=== PATIENT | male | born 1980 | race Caucasian/White ===

== ENCOUNTER 2018-09-20 21:21 | Observation (INO) ==
--- NOTE | 2018-09-20 21:40 | Emergency Department Note ---
Disposition Forms: ED Satisfaction Letter General Adult HPI - General Chief complaint: ED Psychiatric Symptoms Stated complaint: psych/SI/crying/hypoglycemia Time Seen by Provider: 09/20/18 21:24 - Related Data Allergies Allergy/AdvReac Type Severity Reaction Status Date / Time hydromorphone [From Dilaudid] Allergy Rash Verified 09/20/18 21:39 tramadol Allergy Rash Verified 09/20/18 21:39 Course Vital Signs Temperature 98.2 F 09/20/18 21:43 Pulse Rate 98 09/20/18 21:43 Respiratory Rate 20 09/20/18 21:43 Blood Pressure 166/103 09/20/18 21:43 O2 Sat by Pulse Oximetry 99 09/20/18 21:43 Temperature 98.2 F 09/20/18 21:43 Pulse Rate 98 09/20/18 21:43 Respiratory Rate 20 09/20/18 21:43 Blood Pressure 166/103 09/20/18 21:43 O2 Sat by Pulse Oximetry 99 09/20/18 21:43 Oxygen Delivery Oxygen Delivery Room Air Medical Decision Making - Lab Data Result diagrams: 09/20/18 22:12 Lab Results 09/20/18 09/20/18 09/20/18 Range/Units 21:29 21:30 22:12 WBC 6.6 (4.3-11.1) K/mcL RBC 5.17 (4.19-5.50) M/mcL Hgb 14.9 (12.9-16.9) g/dL Hct 46.5 (37.5-50.1) % MCV 89.9 (83.0-100.0) fL MCH 28.8 (28.0-33.3) pg MCHC 32.0 (31.6-35.5) g/dL RDW 12.9 (11.5-14.5) % Plt Count 319 (140-400) K/mcL MPV 10.5 (9.4-12.4) fL Immature Gran % 0.3 (0-4) % Seg Neutrophils % 45.9 % Lymphocytes % 32.9 % Monocytes % 17.2 % Eosinophils % 2.6 % Basophils % 1.1 % Neutrophils # 3.0 (1.6-8.9) K/mcL Lymphocytes # 2.2 (0.6-4.6) K/mcL Monocytes # 1.1 (0.0-1.3) K/mcL Eosinophils # 0.2 (0.0-0.6) K/mcL Basophils # 0.1 (0.0-0.2) K/mcL POC Glucose 32 L* 33 L* (70-99) mg/dL Critical Care Time Critical Care Time: Yes Total Critical Care Time: 30 Attestation: The high probability of a clinically significant, sudden or life threatening deterioration of the [] system(s) required my full and direct attention, intervention and personal management. The aggregate critical care time was [] minutes. This time is in addition to time spent performing reported procedures but includes the following: [] Data Review and interpretation [] Patient assessment and monitoring of vital signs [] Documentation [] Medication orders and management Attestation Statement - Attestation Attestation: I examined this patient and my medical decision-making was reviewed with the Resident Physician. I agree with the documented findings, disposition and treatment plan as described except to the extent set forth below. [id number] time provided Patient presents tearful accompanied by law enforcement. He complains of left humerus and shoulder pain after an altercation with law enforcement. It is alleged that he made homicidal threats. The patient was evaluated in conjunction with the resident physician Dr. Husain 22:36: The patient was acutely hypoglycemic. I had a lengthy conversation with the patient's who states that she feels the symptoms were secondary to bot h mental health issues and hypoglycemia. I turned off his insulin pump. He was given orange juice. His symptoms improved. He has a humerus fracture. We are going to attempt to contact the patient's primary orthopedic surgeon's partner since is out of town. We will be unable to clear the patient medically and he will likely require admission to the medicine service for monitoring of glucose, possible orthopedic consultation, and mental health evaluation.
--- NOTE | 2018-09-20 21:47 | Emergency Department Note ---
Disposition Clinical Impression: Suicidal ideation, Hypoglycemia Disposition: Admitted As Inpatient Condition: Good Forms: ED Satisfaction Letter General Adult HPI - General Chief complaint: ED Psychiatric Symptoms Stated complaint: psych/SI/crying/hypoglycemia Time Seen by Provider: 09/20/18 21:24 Source: patient, police Nursing Notes Reviewed: Yes Vital Signs Reviewed: Yes - History of Present Illness HPI Narrative: Patient is a 37 year old male with a history of bipolar disorder and insulin dependent diabetes. Presented to ED by police after responding to call from patient's sister and who report that patient was expressing suicidal and homicidal ideations. Police report that states he threatened "to shoot her". patient did have a concealed carry firearm on his person that was removed by police. Patient was seen and evaluated at the bedside. He denies and current or previous suicidal/homicidal ideations. Denies any recent drug use. Denies ingestion of any substances. Admits to left arm pain, reports previous left total shoulder arthroplasty. 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 - Related Data Allergies Allergy/AdvReac Type Severity Reaction Status Date / Time hydromorphone [From Dilaudid] Allergy Rash Verified 09/20/18 21:39 tramadol Allergy Rash Verified 09/20/18 21:39 Constitutional: Denies: fever, chills Eyes: Denies: vision change ENT ED: Denies: throat pain, dysphagia Cardiovascular: Denies: chest pain, palpitations, syncope Respiratory: Denies: cough, dyspnea, wheezes Gastrointestinal: Denies: abdominal pain, nausea, vomiting Genitourinary: Denies: urgency, dysuria Musculoskeletal: Reports: other (left humerus pain) Neurological: Denies: headache Psychiatric: Reports: anxiety. Denies: depression, suicidal thoughts (patient denies), homicidal thoughts (patient denies) Past Medical History - Past Medical History Source: patient Physical Exam - General General appearance: appears intoxicated - Head Head exam: atraumatic, normocephalic - Eye Eye exam: Present: PERRL, EOMI. Absent: scleral icterus, conjunctival injection - ENT ENT exam: normal exam, mucous membranes moist - Neck Neck exam: Present: trachea midline. Absent: tenderness - Chest Chest inspection: Present: symmetric chest wall rise - Respiratory Respiratory exam: Present: normal lung sounds bilaterally. Absent: respiratory distress, wheezes - Cardiovascular Cardiovascular exam: Present: regular rate, normal rhythm. Absent: systolic murmur, diastolic murmur - Abdominal Exam Abdominal exam: Present: soft, Non-Tender. Absent: distention, guarding, rigidity - Rectal Exam Rectal exam: Present: deferred - Expanded Upper Extremity Exam Shoulder exam: Present: tenderness (generalized left shoulder tenderness), e cchymosis. Absent: full ROM (limited range of motion secondary to pain), swelling, laceration Arm exam: Present: tenderness, ecchymosis Elbow exam: Present: tenderness, ecchymosis. Absent: full ROM (limited range of motion secondary to pain) Forearm/Wrist exam: Present: normal inspection, full ROM Hand exam: Present: normal inspection, full ROM Vascular exam: Normal: capillary refill, radial pulse - Back Exam Back exam: Absent: CVA tenderness (R), CVA tenderness (L) - Neurological Exam Neurological exam: Present: alert, oriented X3, CN II-XII intact - Psychiatric Psychiatric exam: Present: agitated, anxious, homicidal ideation, suicidal ideation - Skin Skin exam: Present: warm, dry Course Course Narrative: Patient presented by police for reported suicidal and homicidal ideations. Patient is an insulin dependent diabetic. Patient complaining of left arm pain, reported history of shoulder replacement. Will require pink slip for safety. Obtain labs including glucose, drug screen, screening labs and left upper extremity imaging. - Reevaluation(s) Reevaluation #1: Initial finger stick glucose of 33. Humerus xray with identification of left midshaft humerus fracture. Have turned of patients insulin pump off. Providing patient with meal. Called Dr. Osborn who advise placement in sugar tong splint and sling and can see patient if admitted. After further discussion with patient and , felt that behavior prior to arrival likely is combination of underlying psychiatric disorder as well as acute hypoglycemia. Patient will likely require admission until euglycemic, Dr. Osborn willing to see patient if admitted. Time: 22:58 Reevaluation #2: BMP with potassium of 3.2, will provide oral potassium. Toxicologies are unremarkable. Finger stick glucose up to 71 after oral intake. Will require admission for hypoglycemia, psyciatric evaluation, and orthopedic consultation. Time: 23:32 Vital Signs Temperature 98.2 F 09/20/18 21:43 Pulse Rate 98 09/20/18 21:43 Respiratory Rate 20 09/20/18 21:43 Blood Pressure 166/103 09/20/18 21:43 O2 Sat by Pulse Oximetry 99 09/20/18 21:43 Temperature 98.2 F 09/20/18 21:43 Pulse Rate 98 09/20/18 21:43 Respiratory Rate 20 09/20/18 21:43 Blood Pressure 166/103 09/20/18 21:43 O2 Sat by Pulse Oximetry 99 09/20/18 21:43 Oxygen Delivery Oxygen Delivery Room Air Medical Decision Making - MDM Narrative Medical decision making narrative: Presenting for concern of suicidal ideation. Initial lab evaluation revealing hypoglycemia of 33. Radiographic evaluation with identification of left humeral shaft fracture. No significant other lab evaluation noted. Blood glucose has come up to 71 on finger stick glucose. Patient is now cooperative and more pleasant. Patient accepted for admission to Dr. Joel. - Medical Records Medical records reviewed: Yes I reviewed the patient's medical records. - Lab Data Lab results reviewed: Yes I reviewed the patient's lab results. Result diagrams: 09/20/18 22:12 09/20/18 22:12 Lab Results 09/20/18 09/20/18 09/20/18 Range/Units 21:29 21:30 22:12 WBC 6.6 (4.3-11.1) K/mcL RBC 5.17 (4.19-5.50) M/mcL Hgb 14.9 (12.9-16.9) g/dL Hct 46.5 (37.5-50.1) % MCV 89.9 (83.0-100.0) fL MCH 28.8 (28.0-33.3) pg MCHC 32.0 (31.6-35.5) g/dL RDW 12.9 (11.5-14.5) % Plt Count 319 (140-400) K/mcL MPV 10.5 (9.4-12.4) fL Immature Gran % 0.3 (0-4) % Seg Neutrophils % 45.9 % Lymphocytes % 32.9 % Monocytes % 17.2 % Eosinophils % 2.6 % Basophils % 1.1 % Neutrophils # 3.0 (1.6-8.9) K/mcL Lymphocytes # 2.2 (0.6-4.6) K/mcL Monocytes # 1.1 (0.0-1.3) K/mcL Eosinophils # 0.2 (0.0-0.6) K/mcL Basophils # 0.1 (0.0-0.2) K/mcL Sodium (136-145) mEq/L Potassium (3.5-5.1) mEq/L Chloride (98-107) mEq/L Carbon Dioxide (23-29) mEq/L BUN (6-20) mg/dL Creatinine (0.70-1.30) mg/dL Est GFR ( Amer) (> 60) Est GFR (Non-Af Amer) (> 60) BUN/Creatinine Ratio (6-26) Glucose (70-105) mg/dL POC Glucose 32 L* 33 L* (70-99) mg/dL Calculated Osmolality (280-300) Calcium (8.6-10.3) mg/dL Total Bilirubin (0.3-1.0) mg/dL Direct Bilirubin (0.0-0.2) mg/dL Indirect Bilirubin (0.0-1.2) mg/dL AST (13-39) Units/L ALT (7-52) Units/L Alkaline Phosphatase (34-104) Units/L Serum Total Protein (6.4-8.9) g/dL Albumin (3.5-5.7) g/dL Globulin (2.4-3.5) g/dL Albumin/Globulin Ratio (1.1-2.2) Salicylates (15.0-30.0) mg/dL Acetaminophen (10-20) mcg/mL Ethyl Alcohol (Less than 10) mg/dL 09/20/18 Range/Units 22:12 WBC (4.3-11.1) K/mcL RBC (4.19-5.50) M/mcL Hgb (12.9-16.9) g/dL Hct (37.5-50.1) % MCV (83.0-100.0) fL MCH (28.0-33.3) pg MCHC (31.6-35.5) g/dL RDW (11.5-14.5) % Plt Count (140-400) K/mcL MPV (9.4-12.4) fL Immature Gran % (0-4) % Seg Neutrophils % % Lymphocytes % % Monocytes % % Eosinophils % % Basophils % % Neutrophils # (1.6-8.9) K/mcL Lymphocytes # (0.6-4.6) K/mcL Monocytes # (0.0-1.3) K/mcL Eosinophils # (0.0-0.6) K/mcL Basophils # (0.0-0.2) K/mcL Sodium 139 (136-145) mEq/L Potassium 3.2 L (3.5-5.1) mEq/L Chloride 109 H (98-107) mEq/L Carbon Dioxide 21 L (23-29) mEq/L BUN 19 (6-20) mg/dL Creatinine 0.76 (0.70-1.30) mg/dL Est GFR ( Amer) > 60 (> 60) Est GFR (Non-Af Amer) > 60 (> 60) BUN/Creatinine Ratio 25 (6-26) Glucose 25 L* (70-105) mg/dL POC Glucose (70-99) mg/dL Calculated Osmolality 286 (280-300) Calcium 9.0 (8.6-10.3) mg/dL Total Bilirubin 0.2 L (0.3-1.0) mg/dL Direct Bilirubin 0.1 (0.0-0.2) mg/dL Indirect Bilirubin 0.1 (0.0-1.2) mg/dL AST 19 (13-39) Units/L ALT 12 (7-52) Units/L Alkaline Phosphatase 89 (34-104) Units/L Serum Total Protein 7.4 (6.4-8.9) g/dL Albumin 4.4 (3.5-5.7) g/dL Globulin 3.0 (2.4-3.5) g/dL Albumin/Globulin Ratio 1.5 (1.1-2.2) Salicylates < 2.5 L (15.0-30.0) mg/dL Acetaminophen < 10 L (10-20) mcg/mL Ethyl Alcohol < 10 (Less than 10) mg/dL - Radiology Data Radiology results reviewed: Yes I reviewed the patient's radiology results.
[2018-09-20] MEDS ORDERED: *HR* OxyCODONE/APAP 10/325 TABLET PO ONE (22:07)
[2018-09-20 22:49] LABS: Basophils # 0.1 K/mcL (0.0-0.2); Basophils % 1.1 %; Eosinophils # 0.2 K/mcL (0.0-0.6); Eosinophils % 2.6 %; Hematocrit 46.5 % (37.5-50.1); Hemoglobin 14.9 g/dL (12.9-16.9); Immature Granulocytes % 0.3 % (0-4); Lymphocytes # 2.2 K/mcL (0.6-4.6); Lymphocytes % 32.9 %; Mean Corpuscular Hemoglobin 28.8 pg (28.0-33.3); Mean Corpuscular Volume 89.9 fL (83.0-100.0); Mean Platelet Volume 10.5 fL (9.4-12.4); Monocytes # 1.1 K/mcL (0.0-1.3); Monocytes % 17.2 %; Platelet Count 319 K/mcL (140-400); Red Blood Count 5.17 M/mcL (4.19-5.50); Red Cell Distribution Width 12.9 % (11.5-14.5); Segmented Neutrophils % 45.9 %
[2018-09-20] MEDS ORDERED: *HR* FentaNYL (PF) 100 MCG/2 ML VIAL IVP ONE (22:58)
[2018-09-20 23:13] LABS: Acetaminophen < 10 mcg/mL (10-20); Alanine Aminotransferase 12 Units/L (7-52); Albumin 4.4 g/dL (3.5-5.7); Albumin/Globulin Ratio 1.5 (1.1-2.2); Alkaline Phosphatase 89 Units/L (34-104); Aspartate Amino Transferase 19 Units/L (13-39); BUN/Creatinine Ratio 25 (6-26); Bilirubin,Direct 0.1 mg/dL (0.0-0.2); Bilirubin,Indirect 0.1 mg/dL (0.0-1.2); Bilirubin,Total 0.2 mg/dL (0.3-1.0); Blood Urea Nitrogen 19 mg/dL (6-20); Carbon Dioxide 21 mEq/L (23-29); Chloride 109 mEq/L (98-107); Ethanol < 10 mg/dL (Less than 10); Glucose 25 mg/dL (70-105); Osmolality,Calculated 286 (280-300); Potassium 3.2 mEq/L (3.5-5.1); Salicylate < 2.5 mg/dL (15.0-30.0); Sodium 139 mEq/L (136-145); Total Protein 7.4 g/dL (6.4-8.9); eGFR For Non-African Americans > 60 (> 60)
[2018-09-21 00:27] LABS: Amphetamine Screen,Urine Negative ng/mL (Cutoff=1000); Barbiturate Screen,Urine Negative ng/mL (Cutoff=200); Benzodiazepines Screen,Urine Negative ng/mL (Cutoff=200); Cannabinoid Screen,Urine Negative ng/mL (Cutoff = 50); Cocaine Screen,Urine Negative ng/mL (Cutoff= 300); Opiate Screen,Urine Positive ng/mL (Cutoff=300); Phencyclidine Screen,Urine Negative ng/mL (Cutoff=25)
[2018-09-21] MEDS ORDERED: *HR* OxyCODONE/APAP 10/325 TABLET PO PRN (03:20)
[2018-09-21] MEDS ORDERED: Naloxone 0.4 MG/ML INJ IVP PRN (03:23)
--- NOTE | 2018-09-21 03:48 | Internal Med History&Physical ---
Date of Encounter: 09/21/18 Time of Encounter: 02:30 Internal Medicine - H&P: HPI Chief complaint: Arm Pain, Reported HI, Hypoglycemia Admitted From: Home Plans for Post Hospital Care: Home History of present illness: Mr. Headley is a 37 year old male with past medical history significant for type 1 diabetes, hyperlipidemia, GERD, bipolar disorder, anxiety, previous orthopedic surgeries, and previous psychiatric hospitalizations who presents via law enforcement as they report they were called due to patient expressing suicidal and homicidal ideations including threatening to shoot his and patient had concealed carry firearm that was removed by police. Patient was pink slipped by ER for same. Law enforcement was called by patients and sister. Patient denies any current or previous homicidal or suicidal ideations. Also complains of 10/10 sharp burning left arm pain following altercation with law enforcement. ER obtained xray which showed mildly displaced mid left humeral diaphyseal fracture and intact left shoulder prosthesis and acomial fixation hardware. Reports left shoulder arthroplasty around one month ago at [facility] with Dr Cid. ER consulted Dr Carter foundation engineer for Dr Cid who requested patient arm be placed in sling and agreed to see patient in consult but reported he is not planning surgery at this time. Was also found to be hypoglycemic on arrival with blood sugar of 32. Insulin pump was turned off and blood sugars improving with oral intake up to the 70's. Patient asymptomatic with hypoglycemia. Patient unsure of cause of hypoglycemia. Denies any tobacco or drug use. Reports drinking 2 beers yesterday. Denies any headache, chest pain, shortness of breath, abdominal pain, bowel or bladder changes. Patient reports blood sugars have been averaging in the 200-300's, which he reports is improved from recently being in the 500-600's. Past Med Surg Social Fam HX - Past Medical History Medical history: diabetes, GERD, hyperlipidemia Psychiatric history: anxiety, bipolar, depression, previous psychiatric hospitalization - Past Surgical History Surgical History: orthopedic, other (reports orthopedic procedures to left shoulder, right hand, femur, back, and bilateral knees) Additional surgical history: left shoulder. Lami L3-4. multiple back sx's - Social History Smoking Status: Never smoker Smokeless Tobacco Status: No Alcohol use: occasionally, recent Drug use: none Internal Medicine - H&P: Meds Aspirin Enteric Coated [Aspirin EC] 325 mg PO DAILY 09/21/18 [History] Atorvastatin [Lipitor] 40 mg PO HS 09/21/18 [History] Divalproex Sodium 500 mg PO HS 09/21/18 [History] Docusate Sodium 100 mg PO BID PRN 09/21/18 [History] Gabapentin [Neurontin] 800 mg PO QID 09/21/18 [History] LORazepam [Ativan] 0.5 mg PO BID 09/21/18 [History] Omeprazole [PriLOSEC] 40 mg PO DAILY 09/21/18 [History] OxyCODONE/APAP 10/325 [Percocet 10/325 MG] 1 each PO Q4HR PRN 09/21/18 [History] Sertraline [Zoloft] 50 mg PO HS 09/21/18 [History] Sertraline [Zoloft] 100 mg PO DAILY 09/21/18 [History] Testosterone Cypionate 200 mg IM Q2W 09/21/18 [History] Tizanidine HCl [Zanaflex] 4 mg PO BID 09/21/18 [History] Topiramate [Topamax] 50 mg PO BID 09/21/18 [History] traZODone [TraZODone] 100 mg PO HS 09/21/18 [History] Allergy/AdvReac Type Severity Reaction Status Date / Time hydromorphone [From Dilaudid] Allergy Rash Verified 09/20/18 21:39 tramadol Allergy Rash Verified 09/20/18 21:39 All Systems PM: A 10-system review of systems was performed and is negative for pertinent findings except as documented above in the HPI. - Constitutional Vitals: Temp Pulse Resp BP Pulse Ox 98.5 F 115 18 133/85 95 09/21/18 01:36 09/21/18 01:36 09/21/18 01:36 09/21/18 01:36 09/21/18 01:36 Exam: General: Alert and oriented. Skin:Normal color, no rash, no lesions. HEENT:Pupils equal, round and reactive. Cardiovascular:Normal S1 & S2, no rubs, murmurs or gallops. No JVD. Pulse regular. Lungs:Breath sounds decreased, no wheezes or crackles. Abdomen:Soft, non-tender, no rigidity. Extremities:No deformity, no edema, no joint swelling or clubbing. Tenderness noted to left upper extremity. Noted to be in sling. PMS intact. Neurological:Normal cognition and motor skills. Pulses:Carotid and radial pulses normal +2. Rest of the physical exam is non contributory. Internal Med - H&P Results - Labs CBC & Chem 7: 09/20/18 22:12 09/20/18 22:12 Labs: Short CBC 09/20/18 Range/Units 22:12 WBC 6.6 (4.3-11.1) K/mcL Hgb 14.9 (12.9-16.9) g/dL Hct 46.5 (37.5-50.1) % Plt Count 319 (140-400) K/mcL Neutrophils # 3.0 (1.6-8.9) K/mcL BMP 09/20/18 22:12 Sodium 139 Potassium 3.2 L Chloride 109 H Carbon Dioxide 21 L BUN 19 Creatinine 0.76 Glucose 25 L* Calcium 9.0 Liver Function 09/20/18 Range/Units 22:12 Total Bilirubin 0.2 L (0.3-1.0) mg/dL Direct Bilirubin 0.1 (0.0-0.2) mg/dL AST 19 (13-39) Units/L ALT 12 (7-52) Units/L Alkaline Phosphatase 89 (34-104) Units/L Albumin 4.4 (3.5-5.7) g/dL - Impressions ITS Impressions Humerus X-Ray 09/20/18 21:40 IMPRESSION: Mildly displaced mid left humeral diaphyseal fracture. Intact left shoulder prosthesis and acromial fixation hardware. D/ / Eulalio Heath / Eulalio Heath Interpreting Provider: Eulalio Heath - Assessment and Plan (1) Humeral fracture Current Visit: Yes Status: Acute Assessment and plan: ER consulted foundation engineer orthopedic Dr Carter, on for patients orthopedic provider Dr Cid. Ortho requested arm be placed in sling and will see patient in consult. Not planning surgery at this time. Pain control with PRN pain medications. Qualifiers: Encounter type: initial encounter Humerus Location: shaft Fracture type: closed Laterality: left Qualified Code(s): S42.302A - Unspecified fracture of shaft of humerus, left arm, initial encounter for closed fracture (2) Homicidal ideations Current Visit: Yes Status: Acute Assessment and plan: Law enforcement reports being called for homicidal and suicidal ideations. Per law enforcement patient stated he was going to shoot his . Tima slipped by ER for same. Psychiatric consult ordered, will need called this a.m. Denies any current or previous homicidal or suicidal ideations. Sitter and suicide/homicide precautions ordered. (3) Hypokalemia Current Visit: Yes Status: Acute Assessment and plan: Replacement given in ER. Repeat labs ordered. (4) Hypoglycemia Current Visit: Yes Status: Acute Assessment and plan: Blood sugar in 30's on arrival. Improving with PO intake. Encourage continued PO intake. Accucheck q2 hours until blood sugars stabilize. Hold home medications until blood sugars stabilize including insulin pump that is currently off. (5) Diabetes mellitus Current Visit: Yes Status: Chronic Assessment and plan: Plan as stated above. Qualifiers: Diabetes mellitus type: type 1 Qualified Code(s): E10.9 - Type 1 diabetes mellitus without complications - Time Spent With Patient Total time spent is greater than 50% in coordination of care (as documented) at patient's floor/unit and/or counseling patient:
[2018-09-21 05:15] LABS: Basophils # 0.1 K/mcL (0.0-0.2); Eosinophils # 0.2 K/mcL (0.0-0.6); Eosinophils % 2.1 %; Hematocrit 46.2 % (37.5-50.1); Hemoglobin 14.9 g/dL (12.9-16.9); Immature Granulocytes % 0.3 % (0-4); Lymphocytes # 2.1 K/mcL (0.6-4.6); Lymphocytes % 26.3 %; Mean Corpuscular HGB Conc 32.3 g/dL (31.6-35.5); Mean Corpuscular Hemoglobin 28.7 pg (28.0-33.3); Mean Platelet Volume 11.9 fL (9.4-12.4); Monocytes # 1.3 K/mcL (0.0-1.3); Monocytes % 15.7 %; Neutrophils # 4.4 K/mcL (1.6-8.9); Platelet Count 255 K/mcL (140-400); Red Blood Count 5.19 M/mcL (4.19-5.50); Red Cell Distribution Width 12.8 % (11.5-14.5); Segmented Neutrophils % 54.6 %
[2018-09-21 05:52] LABS: BUN/Creatinine Ratio 23 (6-26); Blood Urea Nitrogen 16 mg/dL (6-20); Calcium 8.8 mg/dL (8.6-10.3); Carbon Dioxide 20 mEq/L (23-29); Chloride 111 mEq/L (98-107); Glucose 130 mg/dL (70-105); Osmolality,Calculated 279 (280-300); Potassium 4.5 mEq/L (3.5-5.1); Sodium 133 mEq/L (136-145); eGFR For Non-African Americans > 60 (> 60)
[2018-09-21] MEDS ORDERED: Dextrose Gel 15 GM/37.5 ML TUBE PO PRN ×2 (06:51)
[2018-09-21] MEDS ORDERED: D5% in Water 1,000 ML IVC PRN ×2 (06:51→09:12)
[2018-09-21] MEDS ORDERED: *HR* Dextrose 50 % in Water (Syg) 50 ML SYRINGE IVP PRN (06:51)
[2018-09-21] MEDS: Topiramate 25 MG TABLET PO SCH ×2 (07:54→20:36)
[2018-09-21] MEDS: *HR* LORazepam 0.5 MG TABLET PO SCH ×2 (07:54→20:35)
[2018-09-21] MEDS: Gabapentin 400 MG CAPSULE PO SCH ×4 (07:54→20:35)
[2018-09-21] MEDS: tiZANidine 4 MG TABLET PO PRN (07:57)
[2018-09-21] MEDS: Insulin LISPRO 300 UNITS/3 ML VIAL SQ SCH ×2 (12:38→20:36)
[2018-09-21] MEDS: *HR* OxyCODONE/APAP 10/325 TABLET PO PRN ×3 (12:38→20:35)
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
[2018-09-21] MEDS ORDERED: traZODone 50 MG TABLET PO SCH (21:00)
[2018-09-21] MEDS ORDERED: Divalproex (12 HR) 500 MG TABLET PO SCH (21:00)
[2018-09-22] MEDS: Insulin LISPRO 300 UNITS/3 ML VIAL SQ SCH ×3 (00:54→12:24)
[2018-09-22] MEDS: *HR* OxyCODONE/APAP 10/325 TABLET PO PRN ×4 (01:02→14:35)
[2018-09-22] MEDS: tiZANidine 4 MG TABLET PO PRN ×2 (03:12→14:35)
[2018-09-22] MEDS: Gabapentin 400 MG CAPSULE PO SCH ×2 (09:51→12:25)
[2018-09-22] MEDS: *HR* LORazepam 0.5 MG TABLET PO SCH (09:52)
[2018-09-22] MEDS: Topiramate 25 MG TABLET PO SCH (09:57)
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
[2018-09-22 11:15] VITALS: BP 137/94
--- NOTE | 2018-09-22 14:37 | Discharge Summary ---
- NOTES TO OUTPATIENT PROVIDER Notes to Outpatient Provider: Patient is a follow-up for better control of his diabetes with possible editor producer consultation. Patient will also need follow-up with psychiatry an orthopedist in 1-2 weeks. Date of Encounter: 09/22/18 Time of Encounter: 14:32 - Discharge Diagnosis (1) Hypoglycemia Priority: Primary Status: Acute (2) Diabetes mellitus Priority: Secondary Status: Chronic Qualifiers: Diabetes mellitus type: type 1 Qualified Code(s): E10.9 - Type 1 diabetes mellitus without complications (3) Homicidal ideations Priority: Primary Status: Acute (4) Humeral fracture Priority: Primary Status: Acute Qualifiers: Encounter type: initial encounter Humerus Location: shaft Fracture type: closed Laterality: left Qualified Code(s): S42.302A - Unspecified fracture of shaft of humerus, left arm, initial encounter for closed fracture (5) Hypokalemia Priority: Secondary Status: Acute Hospital course: Mr. Headley is a 37 year old male with past medical history of bipolar, depression, diabetes, hyperlipidemia, anxiety was brought in by law enforcement for concerns of suicidal and homicidal ideation. Patient had some altercation with police which led to injury to his left arm which was found to have fracture of the humerus. Orthopedics and psychiatrist were consulted. No surgical intervention recommended at this time per orthopedist and he will continues to have splint for next week in follow-up without ago. He said outpatient. Psychiatry also followed patient while he is hospitalized. Patient was deemed not suicidal or homicidal and was cleared by psychiatrist to be discharged. Patient's gun was taken away by police and given to parents. Spoke to who feels for him to come home. Patient to continue his psychiatric medication and follow-up with his own psychiatrist as outpatient as well as orthopedist. Discharge discussed with: patient, family, nurse, beverage sales consultant - Time Spent with Patient Total time spent providing and/or coordinating discharge services: Time spent: Greater than 30 minutes (38) - Discharge Medications Prescriptions: Continue LORazepam [Ativan] 0.5 mg PO BID traZODone [TraZODone] 100 mg PO HS Topiramate [Topamax] 50 mg PO BID Tizanidine HCl [Zanaflex] 4 mg PO BID Testosterone Cypionate 200 mg IM Q2W Sertraline [Zoloft] 50 mg PO HS Sertraline [Zoloft] 100 mg PO QAM OxyCODONE/APAP 10/325 [Percocet 10/325 MG] 1 tab PO 5XD PRN PRN Reason: Pain Omeprazole [PriLOSEC] 40 mg PO DAILY Gabapentin [Neurontin] 800 mg PO QID Docusate Sodium 100 mg PO BID PRN PRN Reason: Constipation Divalproex Sodium 1,500 mg PO HS Atorvastatin [Lipitor] 40 mg PO HS Aspirin Enteric Coated [Aspirin EC] 325 mg PO DAILY Colchicine [Colcrys] 0.6 mg PO Q1H PRN MDD 3 TABS DAILY PRN Reason: Inflammation Subcutaneous Insulin Pump [T:Slim] 1 each MC AD Tamsulosin HCl [Flomax] 0.4 mg PO DAILY Home Medications: Aspirin Enteric Coated [Aspirin EC] 325 mg PO DAILY 09/21/18 [History] Atorvastatin [Lipitor] 40 mg PO HS 09/21/18 [History] Colchicine [Colcrys] 0.6 mg PO Q1H PRN MDD 3 TABS DAILY 09/21/18 [History] Divalproex Sodium 1,500 mg PO HS 09/21/18 [History] Docusate Sodium 100 mg PO BID PRN 09/21/18 [History] Gabapentin [Neurontin] 800 mg PO QID 09/21/18 [History] LORazepam [Ativan] 0.5 mg PO BID 09/21/18 [History] Omeprazole [PriLOSEC] 40 mg PO DAILY 09/21/18 [History] OxyCODONE/APAP 10/325 [Percocet 10/325 MG] 1 tab PO 5XD PRN 09/21/18 [History] Sertraline [Zoloft] 50 mg PO HS 09/21/18 [History] Sertraline [Zoloft] 100 mg PO QAM 09/21/18 [History] Subcutaneous Insulin Pump [T:Slim] 1 each MC AD 09/21/18 [History] Tamsulosin HCl [Flomax] 0.4 mg PO DAILY 09/21/18 [History] Testosterone Cypionate 200 mg IM Q2W 09/21/18 [History] Tizanidine HCl [Zanaflex] 4 mg PO BID 09/21/18 [History] Topiramate [Topamax] 50 mg PO BID 09/21/18 [History] traZODone [TraZODone] 100 mg PO HS 09/21/18 [History] Allergies/Adverse Reactions: Allergy/AdvReac Type Severity Reaction Status Date / Time hydromorphone [From Dilaudid] Allergy Rash Verified 09/21/18 17:58 tramadol Allergy Rash Verified 09/21/18 17:58 Date of admission: 09/21/18 00:25 Primary care physician: PCP NONE Consults: 09/20/18 22:46 Consult to Orthopedic Surgery [CONS] Stat Consulting Provider: Kwesi Carter Reason for Consult: humerus fracture Time Notified: 22:47 Call Completed: Yes 09/21/18 03:26 Consult to Psychiatry [CONS] Routine Consulting Provider: Psychiatry Maribell Reason consult: Sitter/1:1 Discharging clinician: Gloria Carlson - Constitutional Vitals: Temp Pulse Resp BP Pulse Ox 97.6 F 103 17 137/94 90 09/22/18 11:04 09/22/18 11:04 09/22/18 11:04 09/22/18 11:04 09/22/18 11:04 Exam: General: In no acute distress. Respiratory exam: CTAB. no accessory muscle use, rales, rhonchi, wheezes Cardiovascular exam: RRR, +S1, +S2. no murmur, gallop, rubs. GI/Abdominal exam: Non-tender, Non-distended, normal bowel sounds, soft, no peritoneal signs. Extremities exam: no pedal edema, warm, no calf tenderness, Lt arm sling present. Neurological exam: CN II-XII intact, AO X3, no focal deficits. Skin exam: No skin rash Pych: Not homicidal or suicidal. - Patient Status Disposition: Home, Self-Care Condition: Good - Discharge Instructions Follow Up With: NONE,PCP [Primary Care Provider] - - Diet and Activity Activity: increase activity as tolerated
== END 2018-09-22 16:45 | disposition home or self-care (01) ==
LOC: EMEROOARM 21:21 → 3NENU 21:21 → SUATTDRO 09-21 00:25 → 3NENU 09-21 01:21
PROVIDERS: ADMIT Family Medicine; ATTEND Internal Medicine